=== PATIENT | male | born 1990 | race Asian ===

== ENCOUNTER 2018-12-02 01:07 | Emergency (ER) | payer MEDICAID ==
[~2018-12-02] VITALS: Ht 188 cm; Wt 104.3 kg
[2018-12-02 01:13] VITALS: BP_SYST 126
[2018-12-02] MEDS ORDERED: LACTULOSE 20 GM/30 ML UDC PO ONE (03:00)
[2018-12-02 03:20] VITALS: BP_SYST 118
== END 2018-12-02 03:20 | disposition home or self-care (01) ==
LOC: SED 01:07
DX: K64.4 Residual hemorrhoidal skin tags (principal); K59.00 Constipation, unspecified
CPT/HCPCS: 74018; 99283

== ENCOUNTER 2019-06-14 14:10 | Emergency (ER) | payer MEDICAID, OTHER ==
[~2019-06-14] VITALS: Ht 185.4 cm; Wt 106.6 kg
[2019-06-14 14:28] VITALS: BP_SYST 132
--- NOTE | 2019-06-14 16:40 | NUR ---
Called pt x 1 , no answer
--- NOTE | 2019-06-14 16:45 | NUR ---
Called patient x 2 , no answer
--- NOTE | 2019-06-14 16:51 | NUR ---
Called patient x 3 , no answer
--- NOTE | 2019-06-14 16:51 | NUR ---
Patient left without being seen.
== END 2019-06-14 16:51 | disposition left against medical advice (07) ==
LOC: SED 14:10
DX: R07.89 Other chest pain (principal); R05 Cough; Z53.21 Procedure and treatment not carried out due to patient leaving prior to being seen by health care provider
CPT/HCPCS: 71046-TC; 99281

== ENCOUNTER 2020-06-10 22:06 | Emergency (ER) | payer OTHER, SELFPAY ==
[~2020-06-10] VITALS: Ht 188 cm; Wt 102.1 kg
[2020-06-10 22:24] VITALS: BP_SYST 124
[2020-06-10] MEDS: NACL 0.9% 1,000 ML IV ONE (22:50)
[2020-06-10 23:01] LABS: BASOPHILS # (AUTO) 0.1 K/uL (0.0-0.2); BASOPHILS % (AUTO) 0.7 % (0.0-2.0); EOSINOPHILS # (AUTO) 0.1 K/uL (0.0-0.4); EOSINOPHILS % (AUTO) 0.6 % (0.0-4.0); HEMATOCRIT 40.9 % (36-54); LYMPHOCYTES % (AUTO) 23.5 % (20.5-51.5); MEAN CORPUSCULAR HEMOGLOBIN 30 pg (27-31); MEAN CORPUSCULAR HGB CONC 34 % (32-36); MEAN CORPUSCULAR VOLUME 86 fL (79.0-98.0); MONOCYTES # (AUTO) 0.4 K/uL (0.0-1.0); NEUTROPHILS # (AUTO) 6.1 K/uL (1.8-7.7); NEUTROPHILS % (AUTO) 70.2 % (40.0-70.0); PLATELET COUNT (AUTO) 344 K/uL (130-430); RED BLOOD CELL COUNT(AUTO) 4.74 MIL/uL (4.2-6.2); RED CELL DISTRIBUTION WIDTH 13.2 % (9.0-15.0); WHITE BLOOD COUNT (AUTO) 8.7 K/uL (4.8-10.8)
[2020-06-10 23:19] LABS: CALCIUM 9.6 mg/dL (8.4-11.0); CREATININE 1.19 mg/dL (0.55-1.30); POTASSIUM 3.8 mmol/L (3.5-5.1)
[2020-06-10 23:24] LABS: ALBUMIN 3.7 g/dL (3.4-4.8); TOTAL BILIRUBIN 0.4 mg/dL (0.0-1.0)
[2020-06-10 23:50] VITALS: BP_SYST 126
== END 2020-06-10 23:50 | disposition home or self-care (01) ==
LOC: SED 22:06
DX: R53.1 Weakness (principal); B34.9 Viral infection, unspecified
CPT/HCPCS: 36415; 80053; 85025; 87426; 96360; 99283; J7030